=== PATIENT | male | born 1950 | race Caucasian/White ===

== ENCOUNTER 2022-09-11 12:11 | Outpatient (CLI) | payer MEDICARE, OTHER ==
[~2022-09-11 12:11] MED LIST: Magnevist 469MG/ML 20 ML VIAL ONE
== END 2022-09-11 12:12 | disposition home or self-care (01) ==
LOC: CSHMRI 12:11
PROVIDERS: ATTEND Urology
DX: R97.20 Elevated prostate specific antigen [PSA] (principal); R93.89 Abnormal findings on diagnostic imaging of other specified body structures
CPT/HCPCS: 72197; 82565